=== PATIENT | female | born 2000 | race Two or more races ===

== ENCOUNTER 2025-10-14 08:34 | Outpatient (CLI) | payer OTHER | END 2025-10-14 08:35 | disposition home or self-care (01) | LOC: PRENATAL 08:34 | PROVIDERS: ATTEND Obstetrics & Gynecology Maternal & Fetal Medicine | DX: O36.80X0 Pregnancy with inconclusive fetal viability, not applicable or unspecified (principal); Z36.82 Encounter for antenatal screening for nuchal translucency; Z14.8 Genetic carrier of other disease; Z3A.13 13 weeks gestation of pregnancy ==